=== PATIENT | female | born 1960 | race Caucasian/White ===

== ENCOUNTER → 2016-11-05 | Outpatient (CLI) | payer OTHER ==
--- NOTE | 2016-11-05 14:45 | REPMRS ---
Patient History The patient states she had a clinical breast exam in 01/2017. Patient is postmenopausal. Family history of breast cancer in maternal cousin at age 50 or over. Digital Woman Screen Mammo: November 05, 2016 - Exam #: [id number] Bilateral CC and MLO view(s) were taken. Technologist: Melba Gallardo, Technologist Prior study comparison: July 24, 2014, digital woman screen mammo performed at [facility] to [facility]. May 12, 2013, digital woman screen mammo performed at [facility] to [facility]. FINDINGS: There are scattered fibroglandular densities. There has been no change in the appearance of the mammogram from the prior studies. There is a mild amount of residual fibroglandular tissue which is fairly symmetric. There is no interval development of dominant mass, architectural distortion, or clustered microcalcification suggestive of malignancy. ASSESSMENT: BI-RADS/ACR category 1 mammogram. Negative. Recommendation Routine screening mammogram in 1 year (for women over age 40). This mammogram was interpreted with the aid of an FDA-approved computer-aided dectection system. Electronically Signed By: Reyes Amaro MD 11/05/16 1623
== END ==
LOC: M WHC 13:29
PROVIDERS: ATTEND Nurse Practitioner Family
DX: Z12.31 Encounter for screening mammogram for malignant neoplasm of breast (principal)

== ENCOUNTER 2018-10-07 10:51 | Day surgery (SDC) | payer OTHER ==
[~2018-10-07] VITALS: Ht 167.6 cm; Wt 85.2 kg
[~2018-10-07 10:51] MED LIST: ALLERGY SHOT INJ; CALC1TAB26 PO; CIDA500T2 PO; FLAX1CAP5 PO; MAGN250T7 PO; MONT10TA2 PO; MULTCAP PO; NS 1,000 ML IV ONE; PROAAER10 INH; PROBCAP14 PO; RA T500C2 PO; VITA-144 PO; VITATAB73 PO
[2018-10-07] MEDS ORDERED: PROPOFOL 200 MG/20 ML VIAL As Ordered ONE ×2 (10:55→12:25)
[2018-10-07] MEDS ORDERED: LIDOCAINE 2% INJ 100 MG/5 ML SDV (FOR ANES.) As Ordered ONE (10:55)
--- NOTE | 2018-10-07 12:30 | ROOR ---
Patient Name: Jazzmine Marrufo Procedure Date: 10/07/2018 12:03 PM Date of : 1960 Age: 58 Room: [facility] Gender: Female Note Status: Finalized Procedure: Colonoscopy Indications: High risk colon cancer surveillance: Personal history of colonic polyps Providers: Regis Royal Jr, MD Referring MD: Corby Villagomez MD Requesting Provider: Medicines: Propofol per Anesthesia Complications: No immediate complications. Procedure: Pre-Anesthesia Assessment: - Prior to the procedure, a History and Physical was performed, and patient medications and allergies were reviewed. The patient is competent. The risks and benefits of the procedure and the sedation options and risks were discussed with the patient. All questions were answered and informed consent was obtained. Patient identification and proposed procedure were verified by the physician and the nurse in the pre-procedure area and in the procedure room. Mental Status Examination: alert and oriented. Airway Examination: normal oropharyngeal airway and neck mobility. Respiratory Examination: clear to auscultation. CV Examination: normal. ASA Grade Assessment: II - A patient with mild systemic disease. After reviewing the risks and benefits, the patient was deemed in satisfactory condition to undergo the procedure. The anesthesia plan was to use moderate sedation / analgesia (conscious sedation). Immediately prior to administration of medications, the patient was re-assessed for adequacy to receive sedatives. The heart rate, respiratory rate, oxygen saturations, blood pressure, adequacy of pulmonary ventilation, and response to care were monitored throughout the procedure. The physical status of the patient was re-assessed after the procedure. The Colonoscope was introduced through the anus and advanced to the cecum, identified by appendiceal orifice and ileocecal valve. The colonoscopy was performed without difficulty. The patient tolerated the procedure well. The quality of the bowel preparation was adequate. Findings: The recto-sigmoid colon, descending colon, transverse colon, ascending colon, cecum, appendiceal orifice and ileocecal valve appeared normal. A few small and large-mouthed diverticula were found in the sigmoid colon. A small polyp was found in the rectum. The polyp was removed with a hot snare. Resection was complete, but the polyp tissue was only partially retrieved. Impression: - The recto-sigmoid colon, descending colon, transverse colon, ascending colon, cecum, appendiceal orifice and ileocecal valve are normal. - Diverticulosis in the sigmoid colon. - One small polyp in the rectum, removed with a hot snare. Complete resection. Partial retrieval. Recommendation: - Discharge patient to home (ambulatory). - Repeat colonoscopy in 5 years for surveillance. Regis Royal MD Regis Royal Jr, MD 10/07/2018 12:29:58 PM Electronically signed by Regis Royal Jr, MD Number of Addenda: 0 Note Initiated On: 10/07/2018 12:03 PM Estimated Blood Loss: Estimated blood loss: none.
[2018-10-07 12:57] VITALS: BP 126/61
== END 2018-10-07 13:05 | disposition home or self-care (01) ==
LOC: M OPP 10:51
PROVIDERS: ATTEND Surgery
DX: Z12.11 Encounter for screening for malignant neoplasm of colon (principal); Z86.010 Personal history of colon polyps; K62.1 Rectal polyp; K57.30 Diverticulosis of large intestine without perforation or abscess without bleeding

== ENCOUNTER → 2018-12-07 | Outpatient (REF) | payer OTHER ==
[~2018-12-07] MED LIST changes: -NS 1,000 ML IV ONE
[2018-12-10 14:09] LABS: HPV HYBRID CAPTURE II Negative (Negative)
== END ==
LOC: M SFHCWAGY 11:05
PROVIDERS: ATTEND Nurse Practitioner Family
DX: Z12.4 Encounter for screening for malignant neoplasm of cervix (principal)

== ENCOUNTER → 2018-12-07 | Outpatient (CLI) | payer OTHER ==
--- NOTE | 2018-12-07 12:47 | REPMRS ---
Patient History The patient states she had a clinical breast exam in 11/2018. Patient is postmenopausal. Family history of breast cancer at age 50 or over in maternal cousin, breast cancer at age 50 or over in maternal cousin. No Hormone Replacement Therapy 3D TOMOSYNTHESIS WAS PERFORMED. [facility] lifetime risk for breast cancer is 8.7%. Digital Woman Screen Mammo: December 07, 2018 - Exam #: [id number] Bilateral CC and MLO view(s) were taken. Technologist: Melba Gallardo, Technologist Prior study comparison: November 05, 2016, digital woman screen mammo performed at [facility]. July 24, 2014, digital woman screen mammo performed at [facility]. FINDINGS: The breast tissue is heterogeneously dense. This may lower the sensitivity of mammography. There has been no change in the appearance of the mammogram from the prior studies. There is a moderate amount of residual fibroglandular tissue which is fairly symmetric. There is no interval development of dominant mass, areas of architectural distortion, or clustered microcalcification typical of malignancy. Assessment: BI-RADS/ACR category 1 mammogram. Negative Mammogram. Recommendation Routine screening mammogram in 1 year (for women over age 40). This mammogram was interpreted with the aid of an FDA-approved computer-aided dectection system. Electronically Signed By: Reyes Amaro MD 12/07/18 3551
== END ==
LOC: M WHC 10:36
PROVIDERS: ATTEND Nurse Practitioner Family
DX: Z12.31 Encounter for screening mammogram for malignant neoplasm of breast (principal); Z78.0 Asymptomatic menopausal state